=== PATIENT | female | born 2000 | race African-American/Black ===

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

== ENCOUNTER 2021-03-13 10:09 | Emergency (ER) | payer OTHER ==
[2021-03-13 10:19] VITALS: BP 130/85
--- NOTE | 2021-03-13 10:31 | ED Physician Documentation ---
PD HPI SKIN - Stated complaint Stated Complaint: R ARMPIT PX - Chief complaint Chief Complaint: General - History obtained from History obtained from: Patient - History of Present Illness Timing - onset: How many weeks ago (He had noticed some swelling and tenderness in the right axilla for 2 to 3 weeks but is now increased pain and swelling the last few days. No drainage. No other lesions.) Timing - duration: Weeks (worse the past few days) Timing - details: Gradual onset Location: Other (right axilla) Quality / character: Painful, Discolored (red now), Swelling. No: Draining Associated symptoms: No: Fever, Myalgias, N/V/D Similar symptoms before: Has not had sx before Review of Systems Constitutional: denies: Fever, Chills GI: denies: Nausea, Vomiting Skin: denies: Abrasion (s), Laceration (s) PD PAST MEDICAL HISTORY - Past Medical History Cardiovascular: None Endocrine/Autoimmune: None - Past Surgical History Past Surgical History: No - Present Medications Home Medications: Ambulatory Orders Medication Instructions Recorded Confirmed Doxycycline Monohydrate 150 mg PO BID #14 cap 03/13/21 Ibuprofen [Motrin] 600 mg PO TID PRN #20 tab 03/13/21 - Allergies Allergies/Adverse Reactions: Allergies Allergy/AdvReac Type Severity Reaction Status Date / Time No Known Drug Allergies Allergy Verified 03/13/21 10:19 - Social History Does the pt smoke?: No Smoking Status: Never smoker Does the pt drink ETOH?: No Does the pt have substance abuse?: No - Immunizations Immunizations are current?: Yes - POLST Patient has POLST: No PD ED PE NORMAL - Vitals Vital signs reviewed: Yes - General General: Alert and oriented X 3, No acute distress, Well developed/nourished - Derm Derm: Normal color, Warm and dry - Extremities Extremities: Other (right axilla with local swelling, tenderness about 2-3 cm size. No skin lesions. No drainage. ) Results - Vitals Vitals: Vital Signs - 24 hr 03/13/21 10:15 Temperature 36.3 C L Heart Rate 83 Respiratory 15 Rate Blood Pressure 130/85 H O2 Saturation 100 Oxygen O2 Source Room air Procedures - Abscess I&D (location) right axilla Preparation: Confirmed with ultrasound, Lidocaine 1%, With epi Incision: Incised with scalpel, Purulent drainage Other: Pt tolerated well, Dressing applied, Antibiotic prescribed PD MEDICAL DECISION MAKING - ED course Complexity details: considered differential, d/w patient Departure - Departure Disposition: 01 Home, Self Care Clinical Impression: Axillary abscess Condition: Stable Record reviewed to determine appropriate education?: Yes Instructions: ED Abscess IandD Prescriptions: Doxycycline Monohydrate 150 mg PO BID #14 cap Ibuprofen [Motrin] 600 mg PO TID PRN #20 tab PRN Reason: Pain Comments: Warm moist towels to the armpit area periodically through the day today to promote more drainage. Doxycycline antibiotic and ibuprofen anti-inflammatory as directed. I would anticipate improvement in this over the next few days. The lump feeling there from inflammation may persist for a week or 2 but the tenderness in such should resolve over the next several days. Return if not improved or if getting bigger. Discharge Date/Time: 03/13/21 11:49
[2021-03-13] MEDS ORDERED: LIDOCAINE 1%-EPI 1:100000 20 ML MDV SUBQ STA (10:44)
[2021-03-13] MEDS ORDERED: DOXYCYCLINE 100 MG TABLET PO STA (10:44)
[2021-03-13] MEDS ORDERED: ACETAMINOPHEN 325 MG TABLET PO STA (10:44)
[2021-03-13] MEDS ORDERED: IBUPROFEN 600 MG TABLET PO STA (10:44)
== END 2021-03-13 11:49 | disposition home or self-care (01) ==
LOC: ED 10:09
DX: L02.411 Cutaneous abscess of right axilla (principal)
CPT/HCPCS: 10060; 99282; 99283; A9270

== ENCOUNTER 2023-02-01 17:32 | Emergency (ER) | payer OTHER ==
--- NOTE | 2023-02-01 17:42 | ED Physician Documentation ---
History of Present Illness - Stated complaint Stated Complaint: ANXIETY - History obtained from History obtained from: Patient, EMS - Additonal information Additional information: 22-year-old without history of anxiety found out today that she was getting evicted from her apartment in the next few days. She went to the [facility] today to seek legal advice, and there is no legal help available for her this week. Then she started crying and having chest palpitations and pain and feeling quite short of breath. She went to the [facility] and was referred here for further evaluation and treatment, but on the way here she feels much better. She has not been sleeping well lately. She denies SI or HI. No possibility of . PD PAST MEDICAL HISTORY - Past Medical History Cardiovascular: None Endocrine/Autoimmune: None - Past Surgical History Past Surgical History: No - Present Medications Home Medications: Ambulatory Orders Medication Instructions Recorded Confirmed Doxycycline Monohydrate 150 mg PO BID #14 cap 03/13/21 Ibuprofen [Motrin] 600 mg PO TID PRN #20 tab 03/13/21 traZODone [Desyrel] 50 mg PO HS #20 tablet 02/01/23 - Allergies Allergies/Adverse Reactions: Allergies Allergy/AdvReac Type Severity Reaction Status Date / Time No Known Drug Allergies Allergy Verified 03/13/21 10:19 - Social History Does the pt smoke?: No Smoking Status: Never smoker Does the pt drink ETOH?: No Does the pt have substance abuse?: No - Immunizations Immunizations are current?: Yes - POLST Patient has POLST: No PD ED PE NORMAL - Vitals Vital signs reviewed: Yes - General General: Alert and oriented X 3, Other (Occasionally tearful but otherwise in no distress) - HEENT HEENT: PERRL, EOMI - Neck Neck: Supple, no meningeal sign, No bony TTP - Cardiac Cardiac: RRR, No murmur - Respiratory Respiratory: No respiratory distress, Clear bilaterally - Abdomen Abdomen: Non tender - Neuro Neuro: Alert and oriented X 3, Normal speech - Psych Psych: Normal mood, Normal affect Results - Vitals Vitals: Oxygen O2 Source Room air PD Medical Decision Making - ED course ED course: 22-year-old woman with a not unreasonable panic attack related to life stressors. She is feeling better now but would like something to help her sleep at night and I am writing a prescription for trazodone for same. She would also like someone to talk to, it is well too late in the day for us to have social work here but discussed with her that she can always call [phone]. Departure - Departure Disposition: 01 Home, Self Care Clinical Impression: Panic attack Condition: Good Record reviewed to determine appropriate education?: Yes Instructions: ED Panic Attack Prescriptions: traZODone [Desyrel] 50 mg PO HS #20 tablet Comments: I am writing a prescription to help you sleep, it is not addictive or habit forming. For rapid counseling you can always call [phone], they can have you talk or text with somebody at any time. Return for new or worsening symptoms. 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
[2023-02-01] MEDS ORDERED: LORazepam 1 MG TABLET PO STA (17:58)
[2023-02-01 18:00] VITALS: BP 140/90
== END 2023-02-01 17:57 | disposition home or self-care (01) ==
LOC: EDUNIT# → EDBD → ED 17:32
DX: F41.0 Panic disorder [episodic paroxysmal anxiety] (principal)
CPT/HCPCS: 99283; J8499

== ENCOUNTER 2023-11-06 11:53 | Emergency (ER) | payer OTHER ==
[2023-11-06 12:10] VITALS: O2SAT 100
--- NOTE | 2023-11-06 12:11 | ED Physician Documentation ---
PD HPI MHE - Stated complaint Stated Complaint: MHE - Chief complaint Chief Complaint: MHE - History obtained from History obtained from: Patient - Additional information Additional information: . She was diagnosed recently with anxiety, depression, and PTSD and started on prazosin and antidepressants approximately 2 weeks ago. She states that starting yesterday she was contacted by God and he is telling her things about her command in her job. She will not share with me what those are. [facility]. She states she does not want to be admitted and does not think she needs to be admitted. Denies SI or HI. PD PAST MEDICAL HISTORY - Past Medical History Cardiovascular: None Respiratory: None Neuro: None Endocrine/Autoimmune: None GI: None PUBLICIST: None : None HEENT: None Psych: Depression, Anxiety, Post traumatic stress disorder Musculoskeletal: None Derm: None - Past Surgical History Past Surgical History: No - Present Medications Home Medications: Ambulatory Orders Medication Instructions Recorded Confirmed Escitalopram [Lexapro] 1 tab PO DAILY 11/06/23 11/06/23 Prazosin [Minipress] 1 cap PO DAILY 11/06/23 11/06/23 - Allergies Allergies/Adverse Reactions: Allergies Allergy/AdvReac Type Severity Reaction Status Date / Time No Known Drug Allergies Allergy Verified 02/01/23 17:45 - Social History Does the pt smoke?: No Smoking Status: Never smoker Does the pt drink ETOH?: No Does the pt have substance abuse?: No - Immunizations Immunizations are current?: Yes - POLST Patient has POLST: No PD ED PE NORMAL - Vitals Vital signs reviewed: Yes - General General: Alert and oriented X 3, Other (Calm, cooperative, perhaps slightly grandiose.) - HEENT HEENT: PERRL, EOMI - Neck Neck: Supple, no meningeal sign, No bony TTP - Cardiac Cardiac: RRR, No murmur - Respiratory Respiratory: No respiratory distress, Clear bilaterally - Abdomen Abdomen: Soft, Non tender - Back Back: No CVA TTP, No spinal TTP - Derm Derm: Normal color, Warm and dry - Extremities Extremities: No edema, No calf tenderness / cord - Neuro Neuro: Alert and oriented X 3, Normal speech Results - Vitals Vitals: Vital Signs - 24 hr 11/06/23 11:56 Temperature 36.9 C Heart Rate 108 H Respiratory 15 Rate Blood Pressure 154/95 H O2 Saturation 100 Oxygen O2 Source Room air - Labs Labs: Laboratory Tests 11/06/23 11/06/23 11/06/23 12:15 12:15 12:15 WBC 5.2 RBC 4.92 Hgb 12.9 Hct 42.0 MCV 85.4 MCH 26.2 L MCHC 30.7 L RDW 13.2 Plt Count 262 MPV 11.0 H Neut # (Auto) 3.5 Lymph # (Auto) 1.1 L Payette # (Auto) 0.5 Eos # (Auto) 0.1 Baso # (Auto) 0.0 Absolute Nucleated RBC 0.00 Nucleated RBC % 0.0 Sodium 139 Potassium 3.7 Chloride 105 Carbon Dioxide 26 Anion Gap 8.0 BUN 9 Creatinine 0.9 Estimated GFR (MDRD) 94 Glucose 88 Calcium 9.8 Magnesium 1.8 Total Bilirubin 1.2 H AST 18 ALT 11 Alkaline Phosphatase 65 Total Creatine Kinase 158 Total Protein 8.0 Albumin 4.6 Globulin 3.4 Albumin/Globulin Ratio 1.4 Lipase 23 TSH 0.70 Urine Color Urine Clarity Urine pH Ur Specific Dewey Urine Protein Urine Glucose (UA) Urine Ketones Urine Occult Blood Urine Nitrite Urine Bilirubin Urine Urobilinogen Ur Leukocyte Esterase Urine RBC Urine WBC Ur Squamous Epith Cells Urine Bacteria Ur Microscopic Review Urine Culture Comments Urine HCG, Qual Salicylates < 1.5 Urine Opiates Screen Ur Buprenorphine Scrn Ur Oxycodone Screen Urine Methadone Screen Acetaminophen 0.2 Ur Barbiturates Screen Ur Tricyclics Screen Ur Phencyclidine Scrn Ur Amphetamine Screen U Methamphetamines Scrn U Benzodiazepines Scrn Urine Cocaine Screen U Cannabinoids Screen Ur Drug Screen Comment Ethyl Alcohol < 10.0 SARS-CoV-2 (PCR) NOT DETECTED 11/06/23 12:25 WBC RBC Hgb Hct MCV MCH MCHC RDW Plt Count MPV Neut # (Auto) Lymph # (Auto) Payette # (Auto) Eos # (Auto) Baso # (Auto) Absolute Nucleated RBC Nucleated RBC % Sodium Potassium Chloride Carbon Dioxide Anion Gap BUN Creatinine Estimated GFR (MDRD) Glucose Calcium Magnesium Total Bilirubin AST ALT Alkaline Phosphatase Total Creatine Kinase Total Protein Albumin Globulin Albumin/Globulin Ratio Lipase TSH Urine Color DARK YELLOW Urine Clarity CLEAR Urine pH 6.0 Ur Specific Dewey 1.020 Urine Protein NEGATIVE Urine Glucose (UA) NEGATIVE Urine Ketones 40 H Urine Occult Blood MODERATE H Urine Nitrite NEGATIVE Urine Bilirubin SMALL H Urine Urobilinogen 0.2 (NORMAL) Ur Leukocyte Esterase NEGATIVE Urine RBC 0-5 Urine WBC 0-3 Ur Squamous Epith Cells MOD Squamous H Urine Bacteria Few Ur Microscopic Review INDICATED Urine Culture Comments NOT INDICATED Urine HCG, Qual NEGATIVE Salicylates Urine Opiates Screen NEGATIVE Ur Buprenorphine Scrn NEGATIVE Ur Oxycodone Screen NEGATIVE Urine Methadone Screen NEGATIVE Acetaminophen Ur Barbiturates Screen NEGATIVE Ur Tricyclics Screen NEGATIVE Ur Phencyclidine Scrn NEGATIVE Ur Amphetamine Screen NEGATIVE U Methamphetamines Scrn NEGATIVE U Benzodiazepines Scrn NEGATIVE Urine Cocaine Screen NEGATIVE U Cannabinoids Screen NEGATIVE Ur Drug Screen Comment CUTOFF CONC BELOW: Ethyl Alcohol SARS-CoV-2 (PCR) PD Medical Decision Making - ED course ED course: She presents with symptoms that could be related to potentially schizoaffective disorder, she does seem to be slightly manic and grandiose. 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 I do not know whether or not this is true but it seems like a stretch? She does not want to be admitted. She was sent here to be admitted to [facility] but does not feel like she needs to. I am not seeing clear an indication for involuntary treatment, but would be reasonable to have her do a telepsychiatric evaluation. Psychiatric telehealth Dr. Henderson saw the patient who agrees the diagnosis of smiley and psychosis. Does recommend admission and involuntary if necessary. The patient did tell Dr. Henderson that she was now voluntary. Dr. Henderson recommends olanzapine pending placement. CBC, CMP, urinalysis, test, toxicology screening, and COVID test were normal/negative. She is medically stable for transfer to psychiatric facility for psychiatric stabilization. She was excepted by Dr. Mckeon, psychiatry at [facility] at 4:25 PM. Cobras are completed and she is stable for transfer. Departure - Departure Disposition: 65 Psych Hosp/Unit DC/Xfer Clinical Impression: Smiley Psychosis Qualifiers: Psychosis type: unspecified psychosis type Qualified Code(s): F29 - Unspecified psychosis not due to a substance or known physiological condition Condition: Stable Forms: PCP List
[2023-11-06 12:20] LABS: BASOPHILS % (AUTO) 0.8 %; EOSINOPHILS # (AUTO) 0.1 10^3/uL (0.0-0.7); HGB - HEMOGLOBIN 12.9 g/dL (12.0-16.0); LYMPHOCYTES # (AUTO) 1.1 10^3/uL (1.5-3.5); LYMPHOCYTES % (AUTO) 20.6 %; MEAN CORPUSCULAR HEMOGLOBIN 26.2 pg (27.0-31.0); MEAN CORPUSCULAR HGB CONC 30.7 g/dL (32.0-36.0); MEAN CORPUSCULAR VOLUME 85.4 fL (81.0-99.0); MONOCYTES # (AUTO) 0.5 10^3/uL (0.0-1.0); MONOCYTES % (AUTO) 9.6 %; NEUTROPHILS # (AUTO) 3.5 10^3/uL (1.5-6.6); NEUTROPHILS % (AUTO) 67.8 %; PLT - PLATELET COUNT 262 10^3/uL (130-450); RED BLOOD COUNT 4.92 10^6/uL (4.20-5.40); RED CELL DISTRIBUTION WIDTH 13.2 % (12.0-15.0); WHITE BLOOD COUNT 5.2 x10^3/uL (4.8-10.8)
[2023-11-06 12:43] LABS: ACETAMINOPHEN 0.2 ug/mL; ALBUMIN 4.6 g/dL (3.2-5.5); ALBUMIN/GLOBULIN RATIO 1.4 (1.0-2.2); ALKALINE PHOSPHATASE 65 IU/L (42-121); ALT ALANINE AMINOTRANSFERASE 11 IU/L (10-60); AST ASPARTATE AMINOTRANSFERASE 18 IU/L (10-42); BILIRUBIN,TOTAL 1.2 mg/dL (0.2-1.0); BUN - BLOOD UREA NITROGEN 9 mg/dL (6-20); CALCIUM 9.8 mg/dL (8.5-10.3); CARBON DIOXIDE - CO2 26 mmol/L (21-32); CHLORIDE 105 mmol/L (101-111); CK- CREATINE KINASE 158 IU/L (30-223); CREATININE 0.9 mg/dL (0.6-1.3); ETOH - ETHANOL < 10.0 mg/dL; GFR - MDRD 94 (>89); GLUCOSE 88 mg/dL (74-104); LIPASE 23 U/L (11-82); MAGNESIUM 1.8 mg/dL (1.7-2.3); POTASSIUM 3.7 mmol/L (3.5-4.5); SODIUM 139 mmol/L (135-145)
[2023-11-06 12:44] LABS: SALICYLATE < 1.5 mg/dL
[2023-11-06 12:45] LABS: BILIRUBIN,URINE SMALL (NEGATIVE); GLUCOSE, URINE (UA) NEGATIVE (NEGATIVE); KETONES,URINE (UA) 40 mg/dL (NEGATIVE); LEUKOCYTE ESTERASE, URINE NEGATIVE (NEGATIVE); NITRITE,URINE NEGATIVE (NEGATIVE); OCCULT BLOOD,URINE MODERATE (NEGATIVE); PROTEIN,URINE NEGATIVE (NEGATIVE); UROBILINOGEN,URINE 0.2 (NORMAL) E.U./dL (NORMAL)
[2023-11-06 12:49] LABS: CLARITY,URINE CLEAR (CLEAR)
[2023-11-06 12:53] LABS: HCG UR QUAL NEGATIVE
[2023-11-06 12:59] LABS: AMPHETAMINE SCREEN,URINE NEGATIVE (NEGATIVE); BARBITURATE SCREEN,UR NEGATIVE (NEGATIVE); BENZODIAZEPINES SCREEN, URINE NEGATIVE (NEGATIVE); BUPRENORPHINE SCREEN, URINE NEGATIVE (NEGATIVE); COCAINE SCREEN URINE NEGATIVE (NEGATIVE); METHADONE SCREEN, URINE NEGATIVE (NEGATIVE); METHAMPHETAMINES SCREEN, URINE NEGATIVE (NEGATIVE); OPIATE SCREEN, URINE NEGATIVE (NEGATIVE); OXYCODONE SCREEN, URINE NEGATIVE (NEGATIVE); THC CANNABINOID SCREEN, URINE NEGATIVE (NEGATIVE); TRICYCLIC ANTIDEPRESSANT,URINE NEGATIVE (NEGATIVE)
[2023-11-06 13:02] LABS: RBC,URINE 0-5 /HPF (0-5); SQUAMOUS EPITHELIAL CELL,UR MOD Squamous (<= Few); WBC,URINE 0-3 /HPF (0-5)
[2023-11-06 13:03] LABS: BACTERIA,URINE Few /HPF (None Seen)
--- NOTE | 2023-11-06 13:07 | TELEPSYCH PHYS NOTE ---
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 She states that starting yesterday she was contacted by God and he is telling her things about her command in her job. She will not share with me what those are. She was transferred [facility] here for potential admission. She states she does not want to be admitted and does not think she needs to be admitted. Denies SI or HI. She presents with symptoms that could be related to potentially schizoaffective disorder, she does seem to be slightly manic and grandiose. 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 I do not know whether or not this is true but it seems like a stretch? She does not want to be admitted. She was sent here to be admitted to [facility] but does not feel like she needs to. I am not seeing clear an indication for involuntary treatment, but would be reasonable to have her do a telepsychiatric evaluation. Chief Complaint: Bizarre behavior History of Present Illness: Patient states she is here for "Uh, okay, long story short, I'm trying to see if um, a lack of misinformation and the law people being in charge of essentially medication I was put on 2 weeks ago". States she was on and off this medication in thes past 2 weeks? Yesterday "I had a really spiritual encounter with Brent. He spoke to me". But because of the medication she is on she is "trying to see if it's real or now". She's trying to tell people because "The people who know know, and the people who don't don't" If peoplle know this is true she will probably be going on fast so she can walk with God and Brent. She doesn't know the plan yet because she doesn't know the deicion yet. If she makes the decision it will be final. She will have to go on a 40 day fast, like Brent did. In order to walk with God. She can't explain because the language is different. God chose her because "I gave him hope for the world". As far as she knows, she is the only person who has passed his test. Due to the circumstances and childlessness in her life, he has chosen her because he knows she will make the right decision for this world when it comes time. She believes this is truly true because she knows she is sane and in full control of her mind and doesn't use drugs. She knows so much, but hides it because that makes her a threat to the world. She was at work when she had her encounter with Brent. There were coworkers around. 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 She was able to do that because "I had clarity". She told her coworkers yesterday, and they were shocked they couldn't understand someone would care so much about them. 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 And she has been trying to tlak to her counterparts at work, but people don't like "different". Asked about commands "They told me to make a decision for the world. The best way I can explain it you can understand, it to enter a world of spiritual." We are in a time of good vs evil. What happens after she makes the decision, his plans for her then, he won't reveal until she has mad that decision. Asked if she would act on any command they gave her, any specific command, states "If I'm being honest right now I do not know, God has not revealed his full plan to me yet". "I have a very interesting sight. I have a sight of where I want to change the world. I truly believe I will be the inventor of my time on this earth. I am capable of learning anything I want and be good at it." She is the all in one package as God says, sing, dance, do art, her creativity is beyond what anything could fathom. 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 She is "doing this", but only has a little bit of time. She knows medication can "do things', but doesn't think it can improve vocabulary, and suddenly the words she knows are beyond her knowledge of the dictionary. The words she speaks are not her own, but of a greater being. Everything she is saying right now is being guided directly by Seth right now. (She begins speaking as if making a speech to millions and all can hear her and might respond). She is clearly internally preoccupied. PSYCHIATRIC HISTORY States she was seeing an psychiatrist letty. Diagnosed with anxiety, depression and PTSD. Just started Lexapro 2 weeks ago. She has been on trazodone and prazosin before. No hospitalizations. No suicide attempt. FAMILY HISTORY None that she knows of SOCIAL HISTORY She grew up in a [employer] community and identified as [employer]ology growing up. Gave her life to Seth at 12yo, consistent with her community beliefs/traditions. But does not describe having any previous close and personal encounters with God like this. 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 She lives with her significant other. She works at [employer] with [employer]. Suicide Ideation - Homicide Ideation - Self Harm: No suicidal intent. But describes very clearly intent to engage in an act which would clearly result in (40 days without food), and no insight into the potential for this to l ead to . Psychiatric History - Treatment History: States she was seeing an psychiatrist letty. Diagnosed with anxiety, depression and PTSD. Just started Lexapro 2 weeks ago. She has been on trazodone and prazosin before. No hospitalizations. No suicide attempt. Community Resources Accessed: They spoke with someone on the based who talked about her needing to see a psychiatrist. I strongly encouraged they follow up with mental health providers to ensure access to any mental health care benefits she will be entitled to. Family Psych History/ History of suicide: None that she knows of, though her answer in tangential and not very direct - Medication & Allergies Home Medications: Ambulatory Orders Medication Instructions Recorded Confirmed Escitalopram [Lexapro] 1 tab PO DAILY 11/06/23 11/06/23 Prazosin [Minipress] 1 cap PO DAILY 11/06/23 11/06/23 Allergies/Adverse Reactions: Allergies Allergy/AdvReac Type Severity Reaction Status Date / Time No Known Drug Allergies Allergy Verified 02/01/23 17:45 - Drug & Alcohol History Does patient have Drug/ETOH history or addictive behavior?: No Use: Uses substance without health or social issues: NONE Abuse: Recurrent use of substance despite neg consequences: Amphetamine - Trauma Does the patient have a history of trauma, abuse, neglect or explotation?: No - Personal Information Does the patient have a history or present tendencies for violence?: None 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 Affect is incongruent at times with tears and distress. Association and Thought Process: Circumstantial and tangential. Able to talk about her experiences, but unable to answer questions on topic. Thought Content: Hyperreligious, Grandiose, and delusional Perception: She is clearly attending to internal stimuli on interview and when asked specific questions appears to turn inward to receive her answers from God and clearly responding to him with mumbling and mouthing words with eyes closed. Sensorium, memory and orientation: Alert, oriented, clear Intellectual - Cognitive functioning: Normal Insight and Judgement: Grossly impaired. Emotional and Behavioral Functioning: Serious Impairment: Inability to perform close to usual standards in school, work, or other obligations and these responsibilities are likel to be completely neglected for an extended period of time. i Ability to Self-Care: Serious Impairment: Serious disturbances in physical functioning such as weight change, disrupted sleep, or fatigue that threaten physical well being. - Plan Impression/Risk Assessment: Acute Eliceo with Psychosis Likely psychoactive substance induced by SSRI (no illegal drug use). RISK OF HARM: Extreme: Clear compromise of ability to care adequately for oneself or to be adequately aware of environment. Verbalized intention to engage in a lethal course of action in presence of command hallucinations or delusions which threaten to override usual impulse control. Treatment - Therapy Recommendations: This is a very pleasant 23F with no significant psychiatric history other than mild depression, presenting with acute eliceo and florid psychosis in the context of starting her first SSRI 2 weeks ago. This might be primary illness accentuated by the antidepressant, or purely antidepressant triggered, but either way her interview is essentially a textbook description of eliceo. She is attending to internal stimuli on interview, talking of receiving commands from God, and intent to act on at least the command she will share with me which is to stop eating for 40 days in order to go and walk with God. She demonstrates no insight into the potential for from starvation. I have enormous concern that she is receiving other commands as well, or is expecting to, and she clearly demonstrates no ability or intent to resist acting on those commands. Although she is not suicidal in the classic sense of the word, it is exactly this scenario which is the reason why eliceo has the highest rate of suicide completion out of all mental disorders (13% will end their life during eliceo). She is pleasant, calm, directable...but acutely and severely ill and this is only going to get worse without immediate intervention. I am vaguely familiar with [place] involuntary hospitalization processes, having done my initial training at [facility]. And I recall that (unless things have changed in the last 15 years), involuntary hospitalization in [place] has an extremely high bar and the decision to initially commit was not in the hands of the medical team but of a [facility]-designated supplemental manager with very high rates of recommendation for release. Here in [place], this patient absolutely would meet criteria for involuntary committal and treatment by forcible medication when necessary, on both and emergency and a formal court ordered basis. So my recommendation can only be that involuntary procedures, whatever they may currently be in [place], be pursued if necessary. Fortunately, for now at least, the patient tells me she will agree to be hospitalized voluntarily, and her significant other witnessed and is supportive of this. 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 Here again is a system I am unfamiliar with, I find it unusual the [place] and she was directed to a private hospital. hospitalization is likely to serve her the best, as there they have less pressure to discharge under insurance pressures, ensure direct transition to systems of aftercare, and it would ensure her condition is clearly documented and noted as having occurred while active duty in the event this does turner machine to be a primary illness and will warrant service connection if medically discharged. How to proceed from her current location to a facility, I truly do not know or know if local ED is likely to be familiar with such things either. The best I could do was tell her boyfriend to go back to their steel division supervisor [place] base and ask for guidance moving forward. Right now she is where she is, and need immediate hospitalization within the system that is accessible to her and her medical team. Pharmacological Recommendations: Discontinue Lexapro. Put SSRI's on her allergy list as a witnessed, severe adverse reaction of eliceo. Offer Olanzapine 5mg nightly starting first dose now. Will defer to inpatient team whether lithium would be pursued. - Problem List (1) Eliceo Conclusion/Plan: Admit to acute inpatient, currently voluntary. Seek involuntary procedure if necessary. -Patient is appropriate for any roommate. -Patient is appropriate for a low acuity unit. -No extraordinary inpatient staffing or programming are indicated. -No unusual barriers to discharge are foreseen. - Time Spent & Provider Location Telepsych consultation conducted via videoconferencing: Yes List names and roles of persons who participated in consult: Ellen Henderson MD Telepsych Provider Location: [place] Time Spent (Minutes): 3,861
[2023-11-06] MEDS: OLANZapine ODT 5 MG TABLET TL STA (14:39)
[2023-11-06 17:57] VITALS: BP 150/80
== END 2023-11-06 18:16 ==
LOC: EDUNIT# → ED 11:53
DX: F30.9 Manic episode, unspecified (principal); F29 Unspecified psychosis not due to a substance or known physiological condition
CPT/HCPCS: 36415; 80053; 80143; 80179; 80306; 81001; 81025; 82077; 82550; 83690; 83735; 84443; 85025; 87635; 99284; 99285; A9270; 81003; 87086